=== PATIENT | male | born 1935 | race Caucasian/White ===

== ENCOUNTER 2018-03-27 14:12 | Inpatient (IN) ==
[2018-03-27] MEDS ORDERED: IOPAMIDOL 100 ML BOTTLE IV ONE (14:13)
[2018-03-27] MEDS ORDERED: ONDANSETRON 4 MG/2 ML VIAL IV ONE (14:37)
[2018-03-27] MEDS ORDERED: LACTATED RINGERS 1,000 ML IV ONE (14:37)
[2018-03-27] MEDS ORDERED: PHENobarb/HYOSCY/ATROPINE/SCOP 1 DOSE BOTTLE PO ONE (14:38)
--- NOTE | 2018-03-27 14:39 | Emergency Department Note ---
Abdominal Pain HPI - General Chief Complaint: Abdominal Pain Stated Complaint: Abdominal Pain Time Seen by Provider: 03/27/18 14:34 Source: patient Mode of arrival: ambulatory Limitations: no limitations - History of Present Illness HPI Narrative: This patient has had left lower quadrant pain for last several days with some nausea and some gastric burning. Pain does go into his back somewhat. He has had trouble with constipation in the past but has had a good bowel movement this morning. - Related Data Home Medications Medication Instructions Recorded Confirmed Iron,Carbonyl [Iron Chews] 15 mg PO DAILY 04/16/15 09/27/17 Multivitamin [Multivitamins] 1 each PO DAILY 04/16/15 09/27/17 cyanocobalamin (vit B-12) 1,000 1,000 mcg PO QDAY 07/08/16 09/27/17 mcg tablet ferrous sulfate PO 07/08/16 09/27/17 folic acid 1 mg tablet 1 mg PO QDAY 07/08/16 09/27/17 gabapentin 300 mg capsule PO 90 Days 07/20/16 09/27/17 Previous Rx's Medication Instructions Recorded metoprolol succinate ER 25 mg 25 mg PO QDAY 90 Days #90 tab 06/29/17 tablet,extended release 24 hr furosemide 40 mg tablet 40 mg PO QDAY PRN #30 tab 11/11/17 Allergies Allergy/AdvReac Type Severity Reaction Status Date / Time No Known Drug Allergies Allergy Verified 09/27/17 14:54 Review of Systems All systems ED: reviewed and negative except as stated. Abdominal Pain PMH - Past Medical History PMF Narrative: Medical History (Last Reviewed 09/27/17 @ 15:24 by Viktor Salmon MD) Sinusitis, chronic (Chronic) Simple chronic serous otitis media (Chronic) Osteoarthritis (Chronic) Lumbar disc disease (Chronic) Lumbago (Chronic) Kidney stones (Chronic 01/26/14) Hyperplasia of prostate (Chronic) Gallstones without obstruction of gallbladder (Chronic) Gait abnormality (Chronic) Degenerative joint disease (Chronic) Personal history of colonic polyps (Chronic) Chronic inflammatory demyelinating polyneuritis (Chronic) Cerumen impaction (Chronic) Bilateral cataracts (Chronic) Arrhythmia (Chronic) Anemia (Chronic) Chronic inflammatory demyelinating polyneuropathy (Chronic) Prostate cancer (Chronic) Past Surgical History (Last Reviewed 09/27/17 @ 15:24 by Viktor Salmon MD) History of back surgery (Chronic) History of cataract surgery (Chronic) History of surgery (Chronic) Hx of spinal fusion (Chronic) Family History (Last Reviewed 09/27/17 @ 15:24 by Viktor Salmon MD) Sister Breast cancer Family/Other Cardiovascular disease Hypertension, essential Family/Other Malignant neoplasm - Social History Smoking status: Former smoker Physical Exam Limitations: no limitations General appearance: alert Head: atraumatic Eye: Present: normal appearance ENT: normal exam Neck: Present: normal inspection Chest: Present: normal inspection Respiratory: Present: normal lung sounds bilaterally Cardiovascular: Present: irregular rhythm, normal heart sounds Abdominal: Present: soft, tenderness. Absent: distention, guarding, rebound Abdominal tenderness: Present: LLQ, epigastrium, mild Neurological: Present: alert Psychiatric: Present: normal affect, normal mood Skin: Present: warm, dry, intact Course Vital Signs Temperature 98.1 F 03/27/18 14:13 Pulse Rate 96 H 03/27/18 14:13 Respiratory Rate 18 03/27/18 14:13 Blood Pressure 113/91 03/27/18 14:13 Pulse Oximetry (%) 96 03/27/18 14:13 Temperature 98.1 F 03/27/18 14:13 Pulse Rate 136 H 03/27/18 16:31 Respiratory Rate 18 03/27/18 14:13 Blood Pressure 125/91 03/27/18 16:31 Pulse Oximetry (%) 97 03/27/18 16:31 Abdominal Pain - MDM Narrative Medical decision making narrative: This patient has a large hiatal hernia with a possible stomach volvulus according the radiologist on CT scan. He will be admitted to the hospital by Dr. Crowell the surgeon. - Lab Data Lab results reviewed: Yes I reviewed the patient's lab results. Result diagrams: 03/27/18 14:48 03/27/18 14:48 Lab Results 03/27/18 03/27/18 Range/Units 14:48 14:48 WBC 6.1 (4.5-11.0) K/mcL RBC 4.45 L (4.50-5.90) M/mcL Hgb 15.2 (13.5-16.5) g/dL Hct 45.4 (41.0-55.0) % MCV 102.0 H (80.0-100.0) fL MCH 34.1 H (26.0-34.0) pg MCHC 33.5 (31.0-36.0) g/dL RDW 14.9 H (11.5-14.5) % Plt Count 209 (140-440) K/mcL MPV 9.6 (7.4-10.4) fL Gran % 82.9 H (38.0-78.0) % Lymph % (Auto) 10.7 L (15.5-49.0) % [place] % (Auto) 6.1 (1.0-12.0) % Eos % (Auto) 0.1 (0.0-7.0) % Baso % (Auto) 0.2 (0.0-2.0) % Gran # 5.0 (1.8-8.0) K/mcL Lymph # (Auto) 0.6 L (1.5-4.8) K/mcL [place] # (Auto) 0.4 (0.1-0.9) K/mcL Eos # (Auto) 0 (0.0-0.7) K/mcL Baso # (Auto) 0 (0.0-0.3) K/mcL Sodium 142 (133-145) mmol/L Potassium 3.7 (3.3-5.1) mmol/L Chloride 95 L (96-108) mmol/L Carbon Dioxide 30 (22-30) mmol/L Anion Gap 17.0 H (8-16) BUN 34 H (8-23) mg/dl Creatinine 1.0 (0.7-1.2) mg/dl GFR Calculation 70 Glucose 125 H (70-105) mg/dL Calcium 10.2 (8.6-10.4) mg/dl Total Bilirubin 1.7 H (0.0-1.0) mg/dL AST 21 (0-37) U/l ALT 14 (0-40) U/l Alkaline Phosphatase 108 (39-117) U/L Total Protein 7.7 (5.9-8.4) gm/dL Albumin 4.5 (3.2-5.2) gm/dL Globulin 3.2 (2.2-3.7) gm/dL Albumin/Globulin Ratio 1.4 (1.0-2.3) Lipase 39 (7-60) U/L - Radiology Data Radiology results reviewed: Yes I reviewed the patient's radiology results. Disposition Pt seen by [facility]ER/PA only: No Clinical Impression: Stomach volvulus Disposition: Xfer As Inpt ([facility]) Condition: Good Referrals: Viktro Salmon MD [Primary Care Provider] - Time of Disposition: 16:39
[2018-03-27 15:29] LABS: Basophils # (Auto) 0 K/mcL (0.0-0.3); Basophils % (Auto) 0.2 % (0.0-2.0); Eosinophils # (Auto) 0 K/mcL (0.0-0.7); Eosinophils % (Auto) 0.1 % (0.0-7.0); Granulocytes % (Auto) 82.9 % (38.0-78.0); Lymphocytes # (Auto) 0.6 K/mcL (1.5-4.8); Lymphocytes % (Auto) 10.7 % (15.5-49.0); Mean Corpuscular HGB Conc 33.5 g/dL (31.0-36.0); Mean Corpuscular Hemoglobin 34.1 pg (26.0-34.0); Monocytes # (Auto) 0.4 K/mcL (0.1-0.9); Monocytes % (Auto) 6.1 % (1.0-12.0); Platelet Count 209 K/mcL (140-440); RBC 4.45 M/mcL (4.50-5.90); Red Cell Distribution Width 14.9 % (11.5-14.5)
[2018-03-27 15:44] LABS: ALT/SGPT 14 U/l (0-40); Albumin 4.5 gm/dL (3.2-5.2); Albumin/Globulin Ratio 1.4 (1.0-2.3); Alkaline Phosphatase 108 U/L (39-117); Blood Urea Nitrogen 34 mg/dl (8-23); Lipase 39 U/L (7-60)
[2018-03-27] MEDS ORDERED: ONDANSETRON 4 MG/2 ML VIAL IV PRN (16:33)
[2018-03-27] MEDS ORDERED: PANTOPRAZOLE 40 MG VIAL IV ONE (16:35)
[2018-03-27] MEDS ORDERED: LACTATED RINGERS 1,000 ML IV SCH (16:45)
[2018-03-27] MEDS: PANTOPRAZOLE 80 MG in 0.9 % SODIUM CHLORIDE 100 ML IV SCH (17:50)
[2018-03-27] MEDS: LACTATED RINGERS 1,000 ML IV SCH (18:40)
--- NOTE | 2018-03-27 20:27 | Cat Scan Report ---
CLINICAL INFORMATION: Reason for Exam:LLQ pain , nausea and vomiting COMPARISON: 01/26/14 TECHNIQUE: Following oral contrast and the injection of intravenous contrast the patient was scanned during the portal venous phase from the diaphragm through the symphysis pubis. Sagittal and coronal reformats were created.. Radiation exposure was limited using dose reduction technology. FINDINGS: Patient has a large hiatus hernia. Proximal antrum is partially above the diaphragm. Much of the bodies above the diaphragm. There is a gastric outlet obstruction. Number the oral contrast passed through the pylorus into the duodenum. There is a twist of the stomach at the level of the diaphragm. This has mixed features of both organoaxial and mesenteric axial volvulus. The wall the stomach does not appear to be ischemic. There multiple small simple cysts in the liver the liver is otherwise normal. The gallbladder and bile ducts are normal. The spleen is normal in size and homogeneous. Pancreas is atrophic. The adrenals are normal. Patient has a 2 mm nonobstructing stone in an upper pole calyx of left kidney. There is mild cortical scarring laterally in the upper portion left kidney. There is no hydronephrosis or evidence or renal mass. Scattered plaques are present along the lewis of the aorta, celiac, superior mesenteric and iliac arteries. The aorta is normal in caliber. There is normal amount of gas and stool in the colon. Small intestine is decompressed. No ascites or free intraperitoneal air are present. Multiple radiation implant seeds are present in the prostate. The left seminal vesicle is twice as large as the right. The right side is normal. Metastasis to left seminal vesicle should be suspected. Bone windows show no lytic or blastic metastasis. Patient's had prior lumbar fusion from L4 S1. 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 Dr. Jewell was called with results Interpreted and Authenticated by: Edward Nava 03/27/18
--- NOTE | 2018-03-27 20:34 | General Surg History&Physical ---
History of Present Illness Patient information: Note initiated : 03/27/18 at 8:32 pm Service Date, if different from initiated Date: [] Patient: Jose Mckeon 83 y/o M admitted on 03/27/18 for Abdominal Pain. Chief Complaint: [] HPI: Mr. Mckeon is a 83 year old M admitted for left upper quadrant abdominal pain with possible gastric outlet obstruction due to ORGANO-AXIAL rotation of stomach. The patient states that he has had a burning pain in his left upper quadrant for 4 days. He has not had nausea or vomiting. He has been eating one to 2 meals per day.. He has not had any symptoms of esophageal reflux. He has lost 25 pounds over the past year. His states that his appetite has been decreased for over a year. Patient is admitted and will be placed on nasogastric suction with scheduled for urgent upper endoscopy. Review of Systems - Constitutional malaise, weakness, weight loss - EENT Nose, mouth and throat: abnormal hearing, disequilibrium - Cardiovascular dyspnea on exertion, palpatations, rapid heart rate - Respiratory no cough, no dyspnea on exertion, no wheezing, no pain with cough - Gastrointestinal abdominal pain, bloating, constipation, cramping, early satiety - Genitourinary no difficulty urinating, no urinary frequency, no urinary hesitancy, no urinary incontinence - Musculoskeletal abnormal gait, arthralgias, joint swelling, muscle weakness, numbness, stiffness - Integumentary no new lesions, no pruritus, no rash - Neurological abnormal gait, abnormal hearing, disequilibrium, lack of coordination, weakness - Psychiatric no anxiety, no depression - Endocrine as per HPI, fatigue, palpitations - Hematologic/Lymphatic no easy bleeding, no easy bruising, no lymphadenopathy - Allergic/Immunologic no tongue swelling, no throat swelling, no uticaria, no wheezing, no lip swelling Past History Past medical history: Hypertension History of gallstone disease History of prostate cancer status post brachial therapy Chronic inflammatory demyelinating polyneuritis History of colon polyps Chronic atrial fibrillation Chronic disc disease Past surgical history: Lumbar laminectomy Spinal fusion Past family history: Breast cancer Hypertension Past social history: Former smoker Denies alcohol use Denies drug use Medications and Allergies Home Medications Medication Instructions Recorded Confirmed Type Iron,Carbonyl [Iron Chews] 15 mg PO DAILY 04/16/15 09/27/17 History Multivitamin [Multivitamins] 1 each PO DAILY 04/16/15 09/27/17 History ferrous sulfate PO 07/08/16 09/27/17 History folic acid 1 mg tablet 1 mg PO QDAY 07/08/16 09/27/17 History gabapentin 300 mg capsule PO 90 Days 07/20/16 09/27/17 History metoprolol succinate ER 25 mg 25 mg PO QDAY 90 Days #90 tab 06/29/17 09/27/17 Rx tablet,extended release 24 hr Allergies Allergy/AdvReac Type Severity Reaction Status Date / Time No Known Drug Allergies Allergy Verified 09/27/17 14:54 Exam Temp Pulse Resp BP Pulse Ox 98.1 F 82 18 120/82 94 03/27/18 14:13 03/27/18 17:46 03/27/18 14:13 03/27/18 17:46 03/27/18 17:46 - General physical appearance well developed, well nourished, no distress, chronically ill - Eyes PERRL, normal ocular movement - ENT normal pinna, normal nares, normal mucosa, no congestion, decreased hearing - Head Head exam IM: Present: atraumatic, normal inspection, normocephalic - Neck no masses, no bruits, trachea midline, no lymphadectomy, no venous distension - Cardiovascular Cardiovascular exam IM: Present: normal rate and rhythm, irregular rhythm ( irregularly irregular rhythm), +S1, +S2. Absent: JVD, tachycardia - Respiratory normal expansion, normal respiratory effort, clear to percussion, clear to auscultation - Abdomen Abdomen: Present: soft, non tender, bowel sounds Hernia: Present: none - Genitourinary Present: normal penis with no external lesions - Integumentary Present: no rash, no growths, no abnormal pigmentation - Neurologic Present: normal coordination, normal sensation, other ( atrophy of the muscles of the hands bilaterally) - Musculoskeletal Present: normal posture, other ( altered gait due to motor weakness of X) - Psychiatric Present: oriented to time, oriented to person, oriented to place, speech is normal, memory intact Assessment and Plan (1) Stomach volvulus Nasogastric decompression Scheduled for urgent upper endoscopy tomorrow Follow-up therapy based on endoscopic findings Reglan 5 mg IV every 6 Status: Acute (2) Gastric outlet obstruction Status: Acute (3) Chronic atrial fibrillation Continue on home medications Metoprolol IV to control rate., if Tachycardia should develop Status: Acute (4) Hypertension Status: Acute Qualifiers: Hypertension type: essential hypertension Qualified Code(s): I10 - Essential (primary) hypertension
--- NOTE | 2018-03-27 20:37 | XRay Report ---
HISTORY: Reason for Exam:post NG placement gastric outlet obstruction with gastric volvulus FINDINGS: Patient is a very large hiatus hernia. Nasogastric tube has been inserted. This passes through the hiatus hernia into the body the stomach. There is contrast in nondilated collecting systems in both kidneys following the preceding CT scan. Bands of atelectasis are seen medially in both lower lobes. IMPRESSION: Well-positioned nasogastric tube with the tip located in the stomach below the diaphragm Interpreted and Authenticated by: Edward Nava 03/27/18
[2018-03-27] MEDS ORDERED: METOPROLOL TARTRATE 5 MG/5 ML VIAL IV PRN (20:44)
[2018-03-28] MEDS ORDERED: PANTOPRAZOLE 40 MG VIAL IV ONE (00:43)
[2018-03-28] MEDS: METOCLOPRAMIDE 10 MG/2 ML VIAL IV SCH ×3 (00:46→12:00)
[2018-03-28] MEDS: LACTATED RINGERS 1,000 ML IV SCH ×5 (01:00→16:39)
[2018-03-28] MEDS: PANTOPRAZOLE 80 MG in 0.9 % SODIUM CHLORIDE 100 ML IV SCH ×2 (01:02→14:02)
[2018-03-28 06:16] LABS: ALT/SGPT 10 U/l (0-40); Albumin 3.8 gm/dL (3.2-5.2); Albumin/Globulin Ratio 1.5 (1.0-2.3); Alkaline Phosphatase 85 U/L (39-117); Bilirubin,Direct 0.3 mg/dL (0.0-0.3); Blood Urea Nitrogen 34 mg/dl (8-23); Gamma Glutamyl Transpeptidase 33 U/L (8-61)
[2018-03-28 07:22] LABS: Basophils # (Auto) 0 K/mcL (0.0-0.3); Basophils % (Auto) 0.3 % (0.0-2.0); Eosinophils # (Auto) 0 K/mcL (0.0-0.7); Eosinophils % (Auto) 0.1 % (0.0-7.0); Lymphocytes # (Auto) 0.7 K/mcL (1.5-4.8); Lymphocytes % (Auto) 11.1 % (15.5-49.0); Mean Cell Volume 102.2 fL (80.0-100.0); Mean Corpuscular HGB Conc 34.3 g/dL (31.0-36.0); Monocytes # (Auto) 0.6 K/mcL (0.1-0.9); Monocytes % (Auto) 8.5 % (1.0-12.0); Platelet Count 137 K/mcL (140-440); RBC 3.75 M/mcL (4.50-5.90); Red Cell Distribution Width 15.6 % (11.5-14.5)
[2018-03-28] MEDS ORDERED: DEXAMETHASONE 10 MG/ML VIAL IV ONE (12:15)
[2018-03-28] MEDS ORDERED: MIDAZOLAM 2 MG/2 ML VIAL IV ONE (12:15)
[2018-03-28] MEDS ORDERED: fentaNYL 100 MCG/2 ML VIAL IV ONE (12:15)
[2018-03-28] MEDS ORDERED: PROPOFOL 200 MG/20 ML VIAL IV ONE (12:15)
[2018-03-28] MEDS ORDERED: LIDOCAINE HCL/PF 100 MG/5 ML SYRINGE IV ONE (12:15)
[2018-03-28] MEDS ORDERED: SUCCINYLCHOLINE 20 MG/ML ML IV ONE (12:15)
[2018-03-28] MEDS ORDERED: ONDANSETRON 4 MG/2 ML VIAL IV ONE (12:15)
[2018-03-28] MEDS ORDERED: FLUMAZENIL 0.1 MG/ML ML IV PRN (12:44)
[2018-03-28] MEDS ORDERED: MEPERIDINE 25 MG/ML SYRINGE IV PRN (12:44)
[2018-03-28] MEDS ORDERED: fentaNYL 100 MCG/2 ML VIAL IV PRN (12:44)
[2018-03-28] MEDS ORDERED: BENZOCAINE/MENTHOL 1 LOZENGE PO PRN (12:44)
[2018-03-28] MEDS ORDERED: NALOXONE HCL 0.4 MG/ML VIAL IV PRN (12:44)
[2018-03-28] MEDS ORDERED: ONDANSETRON 4 MG/2 ML VIAL IV PRN ×2 (12:44→14:02)
[2018-03-28] MEDS ORDERED: diphenhydrAMINE 50 MG/ML VIAL IV PRN (12:44)
[2018-03-28] MEDS ORDERED: PROMETHAZINE 25 MG/ML VIAL IV PRN (12:44)
[2018-03-28] MEDS ORDERED: IPRATROPIUM/ALBUTEROL 3 ML AMPUL.NEB NEB PRN (12:44)
[2018-03-28] MEDS ORDERED: LACTATED RINGERS 1,000 ML IV SCH (12:45)
--- NOTE | 2018-03-28 12:49 | Brief Operative Note ---
Date of procedure: 03/28/18 Pre-op diagnosis: gastric volvulus Post-op diagnosis: other (gastric volvulus with gastric outlet obstruction) Procedure: EGD Grafts/Implants: No Anesthesia: GETA Findings: PROXIMAL AND DISTAL TWISTING OF STOMACH WITH OCCLUSION OF ANTRUM AND PYLORUS Complications: none Surgeon: Starr Crowell Specimens Removed/Pathology: none sent Condition: stable Disposition: same day
[2018-03-28] MEDS ORDERED: METOPROLOL TARTRATE 5 MG/5 ML VIAL IV PRN (14:02)
--- NOTE | 2018-03-28 16:36 | Discharge Summary ---
Providers - Providers Patient information: Note initiated : 03/28/18 at 4:35 pm Service Date, if different from initiated Date: [] Patient: Jose Mckeon 83 y/o M admitted on 03/27/18 for Abdominal Pain/ Stomach Volvulus. Chief Complaint: [] Date of admission: 03/27/18 Discharge date: 03/28/18 Attending physician: Strar Crowell Hospitalization Hospital course: 83-year-old male who was admitted with gastric outlet obstruction due to organoaxial volvulus of stomach. The patient has a 4 day history of increasing burning sensation in the left upper quadrant. He states that he has been eating and he denies having nausea or vomiting. He came to the emergency room because of the increasing pain. In retrospect the states that he has had at least 25 pound weight loss over the last few months due to decreased by mouth intake. He has voluntarily decreased his meals to once or twice daily. He has not had any rectal bleeding and he denies emesis. He also denies any type of heartburn or indigestion. The patient was admitted and placed on nasogastric decompression to empty the proximal stomach. On 28 March an upper endoscopy was done. The proximal and distal aspect of the stomach could be intubated without difficulty however I could not locate the opening of the pylorus which would have been in the superior aspect of the stomach. The stomach distal cavity was irrigated with copious amounts of solution so that all surfaces could be seen. The vascularity of the mucosa is intact and there did not appear to be any areas of ischemia, hyperemia, ulceration.. After searching for about 45 minutes the procedure was terminated. The patient will need to have an attempt at laparoscopic derotation of the stomach with fixation. This was discussed with them and he will be transferred to a tertiary center to have this procedure done. Discharge diagnosis: organoaxial volvulus of stomach Secondary discharge diagnosis: Gastric outlet obstruction due to #1 Protein calorie malnutrition Chronic atrial fibrillation with controlled rhythm Chronic disc disease Inflammatory demyelinating polyneuritis History of prostate cancer Hypertension Reason for admission: severe abdominal pain Procedures: Upper endoscopy Pertinent studies/significant findings: CT of abdomen and pelvis with IV contrast on March 23 Complications: None Exam Temp Pulse Resp BP Pulse Ox 98.1 F 82 18 100/59 91 03/28/18 13:30 03/28/18 14:49 03/28/18 13:30 03/28/18 14:49 03/28/18 14:49 - General physical appearance well developed, well nourished, moderate distress - Eyes PERRL, normal ocular movement - ENT normal pinna, normal nares, normal mucosa, no hearing loss, no congestion - Head Head exam IM: Present: atraumatic, normocephalic - Neck no masses, no bruits, trachea midline, no lymphadectomy, no venous distension - Cardiovascular Cardiovascular exam IM: Present: normal rate and rhythm, irregular rhythm ( irregularly irregular rhythm), +S1, +S2, tachycardia. Absent: JVD - Respiratory normal expansion, normal respiratory effort, clear to percussion, clear to auscultation - Abdomen Abdomen: Present: soft, tender ( tender epigastrium with mild distention and supraumbilical midline; active bowel sounds), bowel sounds Hernia: Present: none - Genitourinary Present: normal penis with no external lesions - Integumentary Present: no rash, no growths, no abnormal pigmentation - Neurologic Present: normal coordination, normal sensation, other ( peripheral weakness with unsteady gait and stance; atrophy of the musculatures of hands bilaterally ) - Musculoskeletal Present: other ( unsteady gait and stance) - Psychiatric Present: oriented to time, oriented to person, oriented to place, speech is normal, memory intact Discharge Plan - Patient/Caregiver Discharge Instructions Activity: increase activity as tolerated, other ( patient is transferred to a higher level of care) Diet: NPO ( continued nothing by mouth with nasogastric suction) - Follow up Plan Follow up with: Viktor Salmon MD [Primary Care Provider] - Disposition: [facility] Prognosis: Fair Rehab Potential: Fair I certify that the patient requires SNF services.: No Overall status at discharge: patient is not back to baseline Pending Studies Resuscitation Status Full Code Diet NPO Diet (NOW) Start Sun Mar 27 Breakfast Lactated Ringer's (Lactated Ringers) 1,000 mls @ 100 mls/hr IV .Q10H JORGE Last Admin: 03/28/18 14:16 Dose: Not Given Shift Summary 03/28/18 05:00 Shift Summary by Linda Burnett [id number]. VSS. Denies pain. NG tube in place to left nare with 350cc brown drainage tonight. NPO but ice chips okay. Using urinal at bedside tonight with 200cc dark urine output. Pt reports LBM 03/27/18 and formed. IV to RFA running LR at 100ml/hr and Protonix 10cc/hr. EGD scheduled for 12:00 today. Consent signed by patient. Patient SBA with cane. Initialized on 03/28/18 05:00 - END OF NOTE
[2018-03-28] MEDS ORDERED: METOCLOPRAMIDE 10 MG/2 ML VIAL IV SCH (18:00)
[2018-03-29] MEDS ORDERED: PANTOPRAZOLE 80 MG in 0.9 % SODIUM CHLORIDE 100 ML IV SCH
--- NOTE | 2018-04-06 11:37 | Operative Note ---
DATE OF OPERATION: 03/28/2018 PREOPERATIVE DIAGNOSIS: Gastric volvulus. POSTOPERATIVE DIAGNOSES: Gastric volvulus with gastric outlet obstruction. PROCEDURE: Esophagogastroduodenoscopy. SURGEON: Starr Crowell M.D. FINDINGS: Proximal and distal twisting of the stomach with occlusion of antrum and pylorus. DESCRIPTION: Under general anesthesia, the patient was turned to the left lateral decubitus position. Timeout procedure was carried out as per protocol. The upper endoscope was introduced through the bite block into the retropharynx and the esophagus. The esophagus was unremarkable. There was no abnormality down to the GE junction. GE junction was unremarkable. There was no evidence of stenosis. There was a large hiatal hernia. There was no inflammation in the hernia pouch. There was a narrow opening at the diaphragm. This was traversed without difficulty. Upon entering the distal stomach, it was apparent that there was upward rotation of the stomach. I could see a major twist distally. I tried to maneuver through this but could not. The scope was retroflexed and with retroflex I could see the antrum. The antrum pointed towards the diaphragm. The distal end of the antrum was closed with another twist which I could not maneuver. I tried for about 35 minutes to try to get even the small pediatric scope through the twisted segment, but I could not. Air was removed from the distal and the proximal portion of the stomach. The scope was removed. The patient tolerated the procedure well. He was awakened and transferred to day surgery for postanesthetic monitoring. RECOMMENDATION: The patient needs an attempt at laparoscopic derotation and plication of the anterior wall of the stomach to prevent further volvulus. The other option would be open laparotomy with plication, but this can be avoided if I am able to find someone who can do it laparoscopically which would be hopefully less of a procedure for this elderly gentleman. LCS:alison Job ID: [id number] Doc ID: [id number] Starr Crowell M.D.
== END 2018-03-28 19:47 | disposition short-term general hospital (02) | DRG 392 ==
LOC: ED 14:12 → MEDSUR 18:21
PROVIDERS: ADMIT Family Medicine Adult Medicine; ATTEND Family Medicine Adult Medicine